=== PATIENT | male | born 1945 | race Two or more races ===

== ENCOUNTER 2017-11-22 13:27 | Emergency (ER) | payer SELFPAY ==
[~2017-11-22] VITALS: Ht 170.2 cm; Wt 74.8 kg
[2017-11-22 13:55] VITALS: BP 130/80
[2017-11-22] MEDS ORDERED: levETIRAcetam 1,000mg/NS100ml 100 ML IVPB ONE (14:45)
--- NOTE | 2017-11-22 14:56 | Diagnostic Imaging Report ---
Indication: Altered mental status Technique: Continuous helical CT scanning of the head was performed utilizing automated exposure control without intravenous contrast material. Axial and coronal reconstructions were obtained. Comparison: None CT dose: Total DLP 1390.1 mGycm; CTDI vol 70.38 mGy Findings: There is acute parenchymal hemorrhage within the bilateral inferior frontal lobes. There is some surrounding low attenuation suggestive of edema. Additionally there high attenuation components noted within a left subdural collection which measures up to 9.2 cm in thickness. A chronic appearing right subdural collection measures up 6.6 cm in thickness. There is mild atrophy. There are basal ganglia calcifications. No shift of the midline structures is noted. No definite evidence to suggest hydrocephalus. Mastoid air cells and paranasal sinuses are clear. There is a nondepressed fracture of the left parietal bone. There is some overlying soft tissue swelling. IMPRESSION: * Acute intracranial hemorrhage with acute blood products noted in the inferior frontal lobes bilaterally, right greater than left. Surrounding edema is noted. Likely posttraumatic in etiology however the possibility of underlying ischemia or mass not excludable. Follow-up recommended. 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 * Chronic right subdural collection. * Nondepressed left parietal bone fracture with overlying soft tissue swelling. Discussed with Dr Bismark Fuentes of the ED via telephone conversation approximately 14:40 on 11/22/[address] scanner at [facility] is accredited by the [employer] and the scans are performed using protocols designed to limit radiation exposure to as low as reasonably achievable to attain images of sufficient resolution adequate for diagnostic evaluation.
[2017-11-22 14:57] LABS: HEMATOCRIT 33.1 % (42.0-52.0); HEMOGLOBIN 11.3 G/DL (14.2-18.0); MEAN CORPUSCULAR VOLUME 88 FL (80-99); PLATELET COUNT 204 K/UL (150-450); RED BLOOD COUNT 3.74 M/UL (4.70-6.10); RED CELL DISTRIBUTION WIDTH 15.9 % (11.6-14.8)
[2017-11-22 15:13] LABS: ANION GAP 17 mmol/L (5-15); BLOOD UREA NITROGEN 28 mg/dL (7-18); CALCIUM 7.5 MG/DL (8.5-10.1); CARBON DIOXIDE 16 MMOL/L (21-32); CHLORIDE 106 MMOL/L (98-107); CREATININE 2.5 MG/DL (0.55-1.30); POTASSIUM 3.1 MMOL/L (3.5-5.1); SODIUM 139 MMOL/L (136-145)
--- NOTE | 2017-11-22 15:17 | Diagnostic Imaging Report ---
Indication: Acute mental status Technique: XRAY Chest 1v Comparison: None Findings: Heart size and mediastinal contours are within normal limits given technique. No definite focal airspace consolidation, pleural effusion or pneumothorax. No definite/displaced acute rib fracture identified. There are mild degenerative changes in the spine. Impression: No definite radiographic evidence of acute cardiopulmonary disease.
[2017-11-22 15:18] LABS: ALANINE AMINOTRANSFERASE 23 U/L (12-78); ALBUMIN 3.1 G/DL (3.4-5.0); ALBUMIN/GLOBULIN RATIO 0.9 (1.0-2.7); ALKALINE PHOSPHATASE 140 U/L (46-116); ASPARTATE AMINO TRANSFERASE 24 U/L (15-37); BILIRUBIN,TOTAL 0.5 MG/DL (0.2-1.0)
[2017-11-22 15:19] LABS: AMMONIA 27 umol/L (11-32)
[2017-11-22 15:21] VITALS: BP 180/80
[2017-11-22 16:03] VITALS: BP 92/47
--- NOTE | 2017-11-22 16:23 | Emergency Room Report ---
History of Present Illness General Chief Complaint: Altered Level of Consciousness Source: EMS Present Illness HPI 72-year-old male presents ED for evaluation. Patient found down on sidewalk. Bystanders called 911 today. Upon arrival patient is awake but not answering questions. Tremulous. No signs of distress. No other aggravating relieving factors. No other associated symptoms Allergies: Coded Allergies: UNABLE TO ASSESS (Unverified , 11/22/17) Patient History Past Medical History: none Past Surgical History: none Pertinent Family History: none Social History: Denies: smoking, alcohol use, drug use Immunizations: UTD Reviewed Nursing Documentation: PMH: Agreed; PSxH: Agreed Nursing Documentation-PMH Past Medical History Deferred: Pt Cognitively Impaired Review of Systems All Other Systems: limited Physical Exam Vital Signs Date Time Temp Pulse Resp B/P (MAP) Pulse Ox O2 Delivery O2 Flow Rate FiO2 11/22/17 13:38 99.0 96 16 130/80 98 Room Air 99.0 Sp02 EP Interpretation: reviewed, normal General Appearance: lethargic Head: normocephalic ENT: normal ENT inspection Neck: normal inspection Respiratory: chest non-tender, lungs clear, normal breath sounds, speaking full sentences Cardiovascular #1: regular rate, rhythm, no edema Gastrointestinal: normal bowel sounds, non tender, soft, non-distended, no guarding, no rebound Rectal: deferred Genitourinary: no CVA tenderness Musculoskeletal: normal inspection Neurologic: other - confused Psychiatric: other - confused Skin: normal inspection Lymphatic: normal inspection Procedures Critical Care Time Critical Care Time i. I feel this is a highly complex case requiring extensive working including EKG/Rhythm strip, Xray/CT/US, Blood/urine lab work, repeat exams while in ED, and administration of strong opiates/narcotics for pain control, admission to hospital or close patient follow up. Total time: 30 min bedside evaluation and treatment excludes procedures (EKG). Reason for critical care: Found down.intraparenchymal bleed. SDH Possible complications: hypotension, hypertension, CA, shock, arrhythmias, metabolic acidosis, end organ damage, respiratory failure. Interventions: Labs, IV fluids, EKG, CT head. Consultation with neurosurgery. Rosario. Hydralazine for BP control. Transferred to higher level of care Course: Patient presenting with altered mental status, found down. CT head shows intraparenchymal bleed. Bilateral subdural. No midline shift. Edema noted. Skull fracture nondisplaced. Patient protecting airway. IV Keppra given. Hydralazine given for BP control. Not requiring intubation. Consultation with neurosurgery at [facility] Consultations: nursing staff, EMS, family Performed by: Dr Fuentes Tolerated well condition = critical j. because of unstable vital signs this patient had a condition that could potentially threaten life or limb. I feel this is a critical patient who required my full attention while patient was considered critical. Total Critical Care Time excluding procedures was greater than 35 minutes Medical Decision Making Diagnostic Impression: Primary Impression: Intraparenchymal hemorrhage of brain Additional Impressions: Subdural hematoma Renal insufficiency ER Course Hospital Course 72 yo M presents to ED with AMS, found down Differential diagnosis includes- breakthrough seizure, alcohol abuse, noncompliance with medication Clinical course Patient placed on stretcher. Initial history and physical I ordered labs, IV fluids, CT brain Labs- BUN/Cr elevated, ETOH negative, UTox negative, coags ok, leukocyotsis noted EKg - NSR, no acute ischemic changes interpreted by me CT Brain intraparenchymal bleed noted, acute on chronic subdural, no midline shift, nondisplaced skull fx Given loading dose of Keppra. Given hydralazine for elevated BP Patient is protecting airway and therefore should not be intubated. Patient will be transferred at [facility] for higher level of care. Case endorsed to neurosurgeon i. I feel this is a highly complex case requiring extensive working including EKG/Rhythm strip, Xray/CT/US, Blood/urine lab work, repeat exams while in ED, and administration of strong opiates/narcotics for pain control, admission to hospital or close patient follow up. Diagnosis - intraparenchymal bleed, subdural hematoma, renal insufficiency transferred in critical condition Labs Test 11/22/17 14:23 11/22/17 14:26 White Blood Count 18.0 K/UL (4.8-10.8) Red Blood Count 3.74 M/UL (4.70-6.10) Hemoglobin 11.3 G/DL (14.2-18.0) Hematocrit 33.1 % (42.0-52.0) Mean Corpuscular Volume 88 FL (80-99) Mean Corpuscular Hemoglobin 30.2 PG (27.0-31.0) Mean Corpuscular Hemoglobin Concent 34.1 G/DL (32.0-36.0) Red Cell Distribution Width 15.9 % (11.6-14.8) Platelet Count 204 K/UL (150-450) Mean Platelet Volume 5.5 FL (6.5-10.1) Neutrophils (%) (Auto) % (45.0-75.0) Lymphocytes (%) (Auto) % (20.0-45.0) Monocytes (%) (Auto) % (1.0-10.0) Eosinophils (%) (Auto) % (0.0-3.0) Basophils (%) (Auto) % (0.0-2.0) Differential Total Cells Counted 100 Neutrophils % (Manual) 91 % (45-75) Lymphocytes % (Manual) 3 % (20-45) Monocytes % (Manual) 5 % (1-10) Eosinophils % (Manual) 0 % (0-3) Basophils % (Manual) 0 % (0-2) Band Neutrophils 1 % (0-8) Platelet Estimate Adequate Platelet Morphology Normal Hypochromasia 1+ Anisocytosis 1+ Sodium Level 139 MMOL/L (136-145) Potassium Level 3.1 MMOL/L (3.5-5.1) Chloride Level 106 MMOL/L (98-107) Carbon Dioxide Level 16 MMOL/L (21-32) Anion Gap 17 mmol/L (5-15) Blood Urea Nitrogen 28 mg/dL (7-18) Creatinine 2.5 MG/DL (0.55-1.30) Estimat Glomerular Filtration Rate mL/min (>60) Glucose Level 150 MG/DL (74-106) Calcium Level 7.5 MG/DL (8.5-10.1) Total Bilirubin 0.5 MG/DL (0.2-1.0) Aspartate Amino Transf (AST/SGOT) 24 U/L (15-37) Alanine Aminotransferase (ALT/SGPT) 23 U/L (12-78) Alkaline Phosphatase 140 U/L (46-116) Ammonia 27 umol/L (11-32) Troponin I 0.000 ng/mL (0.000-0.056) Total Protein 6.6 G/DL (6.4-8.2) Albumin 3.1 G/DL (3.4-5.0) Globulin 3.5 g/dL Albumin/Globulin Ratio 0.9 (1.0-2.7) Salicylates Level 0.6 ug/mL (2.8-20) Acetaminophen Level < 2 MCG/ML (10-30) Serum Alcohol < 3 mg/dL Prothrombin Time 10.8 SEC (9.30-11.50) Prothromb Time International Ratio 1.0 (0.9-1.1) Activated Partial Thromboplast Time 27 SEC (23-33) Urine Opiates Screen Negative (NEGATIVE) Urine Barbiturates Screen Negative (NEGATIVE) Phencyclidine (PCP) Screen Negative (NEGATIVE) Urine Amphetamines Screen Negative (NEGATIVE) Urine Benzodiazepines Screen Negative (NEGATIVE) Urine Cocaine Screen Negative (NEGATIVE) Urine Marijuana (THC) Screen Negative (NEGATIVE) EKG Diagnostic Results Rate: normal Rhythm: NSR ST Segments: no acute changes ASA given to the pt in ED: No Rhythm Strip Diag. Results EP Interpretation: yes Rhythm: NSR, no PVC's, no ectopy Chest X-Ray Diagnostic Results Chest X-Ray Diagnostic Results : Chest X-Ray Ordered: Yes # of Views/Limited/Complete: 1 View Indication: Chest Pain EP Interpretation: Yes Interpretation: no consolidation, no effusion, no pneumothorax, no acute cardiopulmonary disease Impression: No acute disease Electronically Signed by: Electronically signed by Bismark Fuentes MD CT/MRI/US Diagnostic Results CT/MRI/US Diagnostic Results : Imaging Test Ordered: CT Head Impression Acute intracranial hemorrhage with acute blood products noted in the inferior frontal lobes bilaterally, right greater than left. Surrounding edema is noted. Likely posttraumatic in etiology however the possibility of underlying ischemia or mass not excludable. Follow-up recommended. 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 * Chronic right subdural collection. * Nondepressed left parietal bone fracture with overlying soft tissue swelling. Last Vital Signs Date Time Temp Pulse Resp B/P (MAP) Pulse Ox O2 Delivery O2 Flow Rate FiO2 11/22/17 16:03 98.2 102 15 92/47 100 Room Air 98.2 Status: improved Disposition: XFER SHT-TRM HOSP Condition: Critical Referrals: NOT CHOSEN IPA/,REFERRING (PCP) Bismark Fuentes MD Nov 22, 2017 16:23
[2017-11-22 17:15] VITALS: BP 92/47
== END 2017-11-22 17:15 | disposition short-term general hospital (02) ==
LOC: EDBD 13:27 → EMR 14:21
DX: S06.5X0A Traumatic subdural hemorrhage without loss of consciousness, initial encounter (principal); S02.91XA Unspecified fracture of skull, initial encounter for closed fracture; I61.8 Other nontraumatic intracerebral hemorrhage; X58.XXXA Exposure to other specified factors, initial encounter; Y93.9 Activity, unspecified; Y92.480 Sidewalk as the place of occurrence of the external cause; N28.9 Disorder of kidney and ureter, unspecified
CPT/HCPCS: 36415; 70450; 71045; 80053; 80307; 82140; 84484; 85007; 85025; 85610; 85730; 86850; 86900; 86901; 93005; 96361; 96374; 96375; 99291; G0480; J0360; J1953; 80329